=== PATIENT | male | born 1955 | race Caucasian/White ===

== ENCOUNTER 2024-02-06 22:50 | Observation (INO) | payer BC, MEDICARE, OTHER ==
[~2024-02-06] VITALS: Ht 185.4 cm; Wt 82.7 kg
[2024-02-06 23:20] LABS: BASOPHILS % (AUTO) 0.7 % (0-1); EOSINOPHILS # (AUTO) 0.1 X10'3 (0-0.9); EOSINOPHILS % (AUTO) 1.8 % (0-6); HEMATOCRIT 38.2 % (42.0-52.0); HEMOGLOBIN 12.8 g/dl (14.0-17.9); LYMPHOCYTES # (AUTO) 1.7 X10'3 (1.1-4.8); LYMPHOCYTES % (AUTO) 34.6 % (21-51); MEAN CORPUSCULAR HGB CONC 33.7 g/dL (33.0-36.5); MEAN CORPUSCULAR VOLUME 97.9 FL (78-98); MEAN PLATELET VOLUME 8.1 FL (7.4-10.4); MONOCYTES # (AUTO) 0.6 X10'3 (0-0.9); MONOCYTES % (AUTO) 11.5 % (2-12); NEUTROPHILS # (AUTO) 2.5 X10'3 (1.8-7.7); NEUTROPHILS % (AUTO) 51.4 % (42-75); PLATELET COUNT 237 X10'3 (140-440); RED CELL DISTRIBUTION WIDTH 13.1 % (11.5-14.5); WHITE BLOOD COUNT 4.9 X10'3 (4.5-11.0)
[2024-02-06 23:34] LABS: ALANINE AMINOTRANSFERASE 34 U/L (12-78); ALBUMIN 3.8 G/DL (3.4-5.0); ALBUMIN/GLOBULIN RATIO 1.1 (1.1-1.5); ALKALINE PHOSPHATASE 39 IU/L (46-116); ANION GAP 7 (8-16); ASPARTATE AMINO TRANSFERASE 28 U/L (10-37); BILIRUBIN,TOTAL 0.2 MG/DL (0.1-1.0); BLOOD UREA NITROGEN 24 MG/DL (7-18); BUN/CREATININE RATIO 30.4 (10.0-20.0); CHLORIDE 106 MMOL/L (99-107); CREATININE 0.79 MG/DL (0.60-1.10); GLUCOSE 97 MG/DL (70-104); POTASSIUM 4.1 MMOL/L (3.5-5.1); SODIUM 142 MMOL/L (135-145); TOTAL CARBON DIOXIDE 29.2 MMOL/L (24-32); TOTAL PROTEIN 7.3 G/DL (6.4-8.2); eCRCL 103 ML/MIN; eGFR > 90 ML/MIN
[2024-02-06 23:42] LABS: PRO BRAIN NATRIURETIC PEPTIDE 57 PG/ML (0-125)
[2024-02-07] VITALS (9 sets, daily range): BP systolic 127–162; BP diastolic 67–77; PULSE 67–92; RESP 14–16; TEMP 98.3; O2SAT 97–100
[2024-02-07] MEDS ORDERED: magnesium sulf-water 2g/50mL 50 ML IV PRN (02:25)
[2024-02-07] MEDS ORDERED: mag hydrox/Alum hydrox/simeth 30ml oral suspension PO PRN (02:25)
[2024-02-07] MEDS ORDERED: potassium Cl 20 mEq SR tablet PO PRN ×2 (02:25)
[2024-02-07] MEDS ORDERED: acetaminophen 325mg tablet PO PRN ×2 (02:25)
[2024-02-07] MEDS ORDERED: magnesium Cl slow-release 64mg tablet PO PRN (02:25)
[2024-02-07] MEDS ORDERED: ondansetron/PF 4mg/2ml inj IV PRN (02:25)
[2024-02-07] MEDS ORDERED: magnesium hydroxide 30ml (MOM) UD suspension PO PRN (02:25)
[2024-02-07] MEDS ORDERED: potassium Cl 40MEQ/1/2NS 520ml 520 ML IV PRN (02:25)
[2024-02-07] MEDS ORDERED: magnesium sulf-water 4G/100mL 100 ML IV PRN (02:25)
[2024-02-07] MEDS ORDERED: nitroGLYCERIN 0.4mg SUBLingual tab SL PRN (02:35)
[2024-02-07] MEDS ORDERED: aminophylline 250mg/10ml inj. IV PRN (02:35)
[2024-02-07] MEDS ORDERED: metoprolol tartrate 1mg/ml inj IV PRN (02:35)
[2024-02-07] MEDS: normal saline 1000ml 1,000 ML IV SCH (02:52)
[2024-02-07 03:11] LABS: MAGNESIUM 2.1 MG/DL (1.5-2.4); POTASSIUM 4.1 MMOL/L (3.5-5.1)
[2024-02-07] MEDS: docusate sod 100mg capsule PO SCH (06:56)
[2024-02-07] MEDS: K and/or MAG REPLACEMENT MC SCH (06:56)
[2024-02-07] MEDS: regadenoson 0.4mg/5ml syringe IV PRN (10:05)
[2024-02-07] MEDS ORDERED: ACET-1008 PO (13:11)
[2024-02-07] MEDS ORDERED: PANT40TA54 PO (13:11)
[2024-02-07] MEDS ORDERED: enoxaparin 40mg/0.4ml syringe SQ SCH (20:00)
== END 2024-02-07 14:07 | disposition home or self-care (01) ==
LOC: ER 22:50 → ED HOLD 02-07 03:17 → EDBEDREQ 02-07 05:25 → PCU 3S 02-07 07:15
PROVIDERS: ADMIT Surgery; ATTEND Internal Medicine
DX: R07.89 Other chest pain (principal); E78.5 Hyperlipidemia, unspecified; Z79.899 Other long term (current) drug therapy
CPT/HCPCS: 36415; 71045; 78452; 80053; 83735; 83880; 84132; 84484; 85025; 87081; 93005; 93017; 93306; 96360; 96361; 99285; A9500; G0378; J2785; J7030

== ENCOUNTER 2024-04-26 10:52 | Outpatient (CLI) | payer BC, MEDICARE, OTHER ==
[~2024-04-26 10:52] MED LIST: ACET-1008 PO; PANT40TA54 PO
== END 2024-04-26 23:59 | disposition home or self-care (01) ==
LOC: MRI02 10:52
PROVIDERS: ATTEND Physical Medicine & Rehabilitation
DX: M51.16 Intervertebral disc disorders with radiculopathy, lumbar region (principal); M47.26 Other spondylosis with radiculopathy, lumbar region; M48.061 Spinal stenosis, lumbar region without neurogenic claudication
CPT/HCPCS: 72148